=== PATIENT | female | born 2000 | race Asian ===

== ENCOUNTER 2020-10-31 09:43 | Emergency (ER) | payer MEDICAID ==
[~2020-10-31] VITALS: Ht 157.5 cm; Wt 74.8 kg
[2020-10-31 09:43] VITALS: BP_SYST 158
--- NOTE | 2020-10-31 09:43 | NUR ---
BROUGHT BACK TO BED #7 AND TRIAGED. REPORT GIVEN TO NATE
--- NOTE | 2020-10-31 09:45 | NUR ---
Pt brought by self, ambulatory, A&OX4, pt presents to ER R side mouth pain, states taking antibiotics and norco but symptoms not improving, pt afebrile, skin pink and warm
--- NOTE | 2020-10-31 10:02 | NUR ---
DR MEDINA AT BEDSIDE FOR EVALUATION
[2020-10-31] MEDS ORDERED: LIDOCAINE 2%, 20 ML MDV INJ ONE (10:30)
--- NOTE | 2020-10-31 10:30 | NUR ---
I&D Procedure done by Dr Susi amaya using sterile technique. Lidocaine 2% used. Adaptic, 4x4 and daren to wound. amt of bleeding noted. Wound care discussed w/ patient. Pt tolerated procedure well.
--- NOTE | 2020-10-31 11:12 | NUR ---
Patient given written and verbal discharge instructions and verbalizes understanding. ER MD discussed with patient the results and treatment provided. Patient in stable condition. ID arm band removed. No Rx given. Patient educated on pain management and to follow up with PMD. Pain Scale 0/10 Opportunity for questions provided and answered. Medication side effect fact sheet provided.
[2020-10-31 11:13] VITALS: BP_SYST 158
== END 2020-10-31 11:13 | disposition home or self-care (01) ==
LOC: SED 09:43 → EDBD 09:43 → SED 11:13
DX: M27.2 Inflammatory conditions of jaws (principal)
CPT/HCPCS: 42000; 99284; J2001

== ENCOUNTER 2021-11-14 21:06 | Emergency (ER) | payer MEDICAID ==
[~2021-11-14] VITALS: Ht 157.5 cm; Wt 81.2 kg
[2021-11-14 21:27] VITALS: BP_SYST 134
--- NOTE | 2021-11-15 00:35 | NUR ---
Patient to ER bed 6 to gown for evaluation. Side rails up. Report given to DHRUV CARPIO.
--- NOTE | 2021-11-15 01:10 | NUR ---
Pt ambulatory from home c/o toothache x2 days. Worsened today into a migraine. Pt reports taking OTC Advil with no relief. Arrived in no acute distress. Breathing adequately on RA.
--- NOTE | 2021-11-15 01:32 | NUR ---
GLENN Uriarte at bedside examining patient.
[2021-11-15] MEDS ORDERED: IBUP-1969 PO (01:50)
[2021-11-15] MEDS ORDERED: AMOX500C2 PO (01:50)
[2021-11-15] MEDS ORDERED: AMOXICILLIN 500 MG CAPSULE PO ONE (02:00)
[2021-11-15] MEDS ORDERED: IBUPROFEN 600 MG TABLET PO ONE (02:00)
[2021-11-15 02:06] VITALS: BP_SYST 129
--- NOTE | 2021-11-15 02:07 | NUR ---
Patient given written and verbal discharge instructions and verbalizes understanding. ER MD discussed with patient the results and treatment provided. Patient in stable condition. ID arm band removed. Rx of Amox and Ibuprofen sent to pharmacy of choice. Patient educated on pain management and to follow up with PMD. Pain Scale 2/10. Opportunity for questions provided and answered. Medication side effect fact sheet provided.
== END 2021-11-15 02:06 | disposition home or self-care (01) ==
LOC: SED 21:06
DX: G44.209 Tension-type headache, unspecified, not intractable (principal); K04.7 Periapical abscess without sinus; Z79.899 Other long term (current) drug therapy
CPT/HCPCS: 99283